=== PATIENT | male | born 1995 | race Caucasian/White ===

== ENCOUNTER 2017-01-13 11:13 | Emergency (ER) | payer OTHER ==
--- NOTE | 2017-01-13 12:27 | EDM.PDOC ---
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 [No Known Home Meds] 03/04/16 [Confirmed 01/13/17] Past Medical History - Past Health History Medical/Surgical History: Denies Medical/Surgical History - Infectious Disease History Infectious Disease History: Reports: Other (see below) Other Infectious Disease History: hand,foot and mouth disease Social & Family History - Tobacco Use Smoking Status *Q: Never Smoker - Alcohol Use Days Per Week of Alcohol Use: 2 Number of Drinks Per Day: 6 Total Drinks Per Week: 12 - Recreational Drug Use Recreational Drug Use: No Review of Systems - Review of Systems Review Of Systems: See Below Constitutional: Reports: no symptoms Musculoskeletal: Reports: shoulder pain Skin: Reports: no symptoms Neurological: Reports: No Symptoms. Denies: Numbness, Paresthesia, Tingling, Weakness Trauma Exam - Physical Exam Exam: See Below Exam Limited By: No limitations General Appearance: Reports: alert, WD/WN, no apparent distress Head: Reports: atraumatic, normocephalic Neck: Reports: non-tender, full range of motion, normal alignment, normal inspection Back: Reports: full range of motion, normal inspection Extremities: Reports: no evidence of injury, normal range of motion, non-tender , other (Patient has full range of motion normal Apley scratch external/ internal movement negative drop arm negative Neer's negative speed's normally can no signs of any impingement he is neurovascular intact) 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 II-XII nml as tested, no motor/sensory deficits, alert , normal mood/affect, oriented x 3 Skin: Reports: Normal color, Warm/dry Course - Vital Signs Text/Narrative:: Patient is instructed to follow with primary care provider and/or an orthopedic doctor of his choice Last Recorded V/S: Last Vital Signs Temp 36.6 C 01/13/17 11:57 Pulse 74 01/13/17 11:57 Resp 16 01/13/17 11:57 BP 131/80 01/13/17 11:57 Pulse Ox 100 01/13/17 11:57 Departure - Departure Time of Disposition: 12:25 Disposition: Home, Self-Care 01 Condition: good Clinical Impression: Shoulder pain, right Qualifiers: Chronicity: chronic Qualified Code(s): M25.511 - Pain in right shoulder; G89.29 - Other chronic pain Forms: ED Department Discharge
== END 2017-01-13 12:32 | disposition home or self-care (01) ==
LOC: VM.ED 11:13
DX: M25.511 Pain in right shoulder (principal)
CPT/HCPCS: 99283